=== PATIENT | male | born 1990 | race Caucasian/White ===

== ENCOUNTER 2019-05-08 04:04 | Inpatient (IN) | payer BC, OTHER, SELFPAY ==
[2019-05-08 05:11] VITALS: BMI 43.0
[2019-05-08] MEDS ORDERED: Sodium Chloride 0.9% 1,000 ML IV SCH (05:45)
[2019-05-08] MEDS ORDERED: Morphine 2 MG/ML SYRINGE SLOW IVP PRN (05:52)
--- NOTE | 2019-05-08 05:55 | PDOC.FPRHP ---
- History of Present Illness Chief Complaint: abd pain History of Present Illness: 29 y/o M with pmhx DM II and HTN presents via direct admit from [facility] for acute pancreatitis. Pt states he started having abd pain yesterday at 5 AM that was gradually worsened. 7/10 intensity, radiates to back. Ate a cheeseburger for breakfast yesterday morning and started experiencing pain after that. C/o N/V and chronic diarrhea. Denies heart burn or reflux. Denies CP, SOB, cough, fever/chills. ED course: CT abd pelvis: peripancreatic fluid, fat stranding. given morphine, 1 L NS, and zofran. Lipase 270, Na 135, Cl 97 glucose 273 ALT 63, AST 14, Alk phos 88 wbc 12.1 - Allergies/Adverse Reactions Allergies Allergy/AdvReac Type Severity Reaction Status Date / Time No Known Allergies Allergy Verified 05/08/19 05:15 - Home Medications Medication Instructions Recorded Confirmed Type Lisinopril 10 mg PO DAILY 05/08/19 History glyBURIDE [Glyburide] 10 mg PO BID 05/08/19 05/08/19 History metFORMIN [Glucophage] 1,000 mg PO BID 05/08/19 05/08/19 History - History PMHx: DM II, HTN, obesity PSHx: none FHx: mother: DM II, Father: DM II Social: Denies etoh, drug or tobacco use - Review of Systems General: reports: weight/appetite/sleep changes (decreased appetite). denies: fever/chills Eyes: denies: eye pain ENT: denies: nasal congestion, rhinorrhea Respiratory: denies: cough, shortness of breath Cardiovascular: denies: chest pain, palpitation, edema Gastrointestinal: reports: nausea, vomiting, diarrhea, abdominal pain. denies: constipation, GI bleeding Genitourinary: denies: incontinence, dysuria Skin: denies: rashes, lesions Musculoskeletal: reports: pain (upper back pain). denies: swelling Neurological: denies: syncope, weakness - Vital signs BP: 174/110 HR: 84 RR: 18 Tmax: 98.6 Pox: 96% on ra Wt: 148 kg - Physical Exam Constitutional: NAD, awake, alert and oriented, well developed HEENT: normocephalic and atraumatic, PERRLA, EOMI, conjunctiva clear, no scleral icterus, grossly normal vision, grossly normal hearing, other (dry MM) Neck: supple, FROM, trachea midline, no JVD Heart: RRR, normal S1/S2, pulses present, no edema Lungs: CTAB, no respiratory distress, good air movement, no rales/rhonchi, no wheezing, no retractions Abdomen: soft, bowel sounds present, other (TTP on light tough epigastric region ) Musculoskeletal: normal structure, normal tone, ROM grossly normal Neurological: no focal deficit, normal sensation Skin: no rash/lesions, good turgor, capillary refill <2 seconds, no jaundice Heme/Lymphatic: no unusual bruising or bleeding, no purpura, no petechia Psychiatric: normal mood and affect, good judgment and insight, intact recent and remote memory FMR H&P: A/P - Problem List (1) Acute pancreatitis Current Visit: Yes Status: Acute Code(s): K85.90 - ACUTE PANCREATITIS WITHOUT NECROSIS OR INFECTION, UNSP Qualifiers: Pancreatitis type: idiopathic (2) DM II (diabetes mellitus, type II), controlled Current Visit: Yes Status: Acute Code(s): E11.9 - TYPE 2 DIABETES MELLITUS WITHOUT COMPLICATIONS (3) HTN (hypertension) Current Visit: Yes Status: Acute Code(s): I10 - ESSENTIAL (PRIMARY) HYPERTENSION (4) Intractable nausea and vomiting Current Visit: Yes Status: Acute Code(s): R11.2 - NAUSEA WITH VOMITING, UNSPECIFIED - Plan 29 y/o male admitted to med inpt for acute pancreatitis 1. Acute pancreatits - idiopathic - ordered abd sonogram to evaluate for cholelithiasis - ordered FLP, LDH - Bisap score 0 - IVF hydration NS @ 150 ml/hr, Morphine for pain control, NPO status 2. Intractable N/V - Zofran antiemetic ordered 3. DM II - SSI - AC/HS accuchecks - will resume home medications once tolerating PO 4. HTN - hydralazine prn - hold lisinopril until tolerating po code status: full code diet: npo dvt ppx: lovenox Dispo: stable, admit to med inpt for pancreatitis treatment and further evaluation FMR H&P: Upper Level - Plan Date/Time: 05/08/19 0551 I, Fuentes Gibbons MD, have evaluated this patient and agree with findings/ plan as outlined by pharmacist intern resident. Pertinent changes/additions are listed here. Acute Pancreatitis - NPO - IVF - Pain Control - Labs ordered for risk stratification - Abd US to rule out gallstone pancreatitis DM2 - Held home meds - Insulin SS - accuchecks All other chronic conditions reviewed and medications to be restarted as appropriate. PCP: Dr. Bruce CODE STATUS: FULL CODE Disposition: Stable, will admit to inpatient medical for further evaluation and management.
[2019-05-08] MEDS ORDERED: Dextrose 5% in Water 1,000 ML IV PRN (06:08)
[2019-05-08] MEDS ORDERED: Dextrose 50% Abboject 50 ML SYRINGE SLOW IVP PRN (06:08)
[2019-05-08] MEDS ORDERED: hydrALAZINE 20 MG/ML VIAL SLOW IVP PRN (06:14)
[2019-05-08] MEDS: Sodium Chloride 0.9% 1,000 ML IV SCH ×4 (06:28→22:35)
[2019-05-08] MEDS: HumaLOG 300 UNITS/3 ML VIAL SC PRN ×3 (06:35→16:07)
[2019-05-08] MEDS: Morphine 2 MG/ML SYRINGE SLOW IVP PRN ×8 (06:42→22:34)
[2019-05-08 06:47] LABS: Cardiac Risk 3.3 (Less than 4.5); Cholesterol 128 mg/dl (< 200 Desired); HDL Cholesterol 39 mg/dL (>60 Neg Risk); LDL Cholesterol, Calculated 67 mg/dL; Magnesium 1.6 mg/dL (1.6-2.6); Phosphorus 3.5 mg/dL (2.3-4.7); Triglycerides 109 mg/dL (Less than 150)
[2019-05-08] MEDS: Ondansetron PF 4 MG/2 ML Vial IVP PRN ×3 (07:02→20:12)
--- NOTE | 2019-05-08 07:58 | ULT ---
ULTRASOUND ABDOMEN LIMITED: (RIGHT UPPER QUADRANT) DATE: 05/08/2019 HISTORY: 29-year-old male with acute pancreatitis FINDINGS: There is very limited visualization of intra-abdominal contents due to body habitus. Most of the live r and deep portions of the gallbladder are poorly visualized. Gallbladder: Normal wall thickness. No evidence of pericholecystic fluid, or gallstones. Liver: Diffusely increased echogenicity, consistent with fatty liver in the small region of left lobe that is visible. Most of the liver is not visible because of body habitus. Common duct not visualized. Right kidney: No hydronephrosis. Pancreas: Obscured by shadowing from bowel gas. IMPRESSION: 1) Hepatic steatosis. 2) no gallstones identified 3) pancreas not visualized. 4) Limited study with poor visualization of much of the abdominal contents due to body habitus.
[2019-05-08] MEDS: Enoxaparin Sodium 40 MG/0.4 ML SYRINGE SC SCH (08:11)
[2019-05-08] MEDS: Famotidine/PF 20 mg/2ml Vial SLOW IVP SCH ×2 (08:11→20:13)
--- NOTE | 2019-05-08 11:49 | HP ---
I have examined the patient and discussed the case with Dr. Gwendolyn Arreguin and agree with her assessment plan. Briefly, Mr. Light is a 29-year-old type 2 diabetic, who had presented to the [facility] with abdominal pain. He was found there to have acute pancreatitis and was transferred to our center for ongoing higher level of care. PHYSICAL EXAMINATION: VITAL SIGNS: His blood pressure is 160/100, heart rate is 80, and respirations 16. He is afebrile. His room air pulse ox is 96%. GENERAL: He is awake and alert. Still in a great deal of discomfort, but able to converse. EARS, NOSE, AND THROAT: No erythema or exudate. NECK: Supple. CARDIAC: Heart rhythm is regular without gallop or murmur. LUNGS: Clear without rales or wheezes. ABDOMEN: Obese. Positive bowel sounds. Slightly tender in the left upper quadrant. He is not particularly tender in the epigastric area. NEUROLOGICAL: No focal deficits. LABORATORY DATA: His lipase from the outlying lab was 250. His triglycerides 109, cholesterol 128, and LDL is 67. ASSESSMENT: Possible pancreatitis. PLAN: Admit fluids. Pain control. Right upper quadrant ultrasound. Job ID: [id number]
[2019-05-08] MEDS ORDERED: Lisinopril 10 MG TAB PO SCH (12:15)
[2019-05-09] MEDS: Morphine 2 MG/ML SYRINGE SLOW IVP PRN ×3 (00:56→05:55)
[2019-05-09] MEDS: Sodium Chloride 0.9% 1,000 ML IV SCH ×5 (00:57→16:14)
--- NOTE | 2019-05-09 05:32 | PDOC.FM ---
- Subjective Subjective: Pt is concerned about pain mgmt. He waits 45 min when he asks for the morphine every 2 hours. The morphine makes him nauseous and has vomited 500 mL. Has taken zofran round the clock. He took some orange juice and that did not make him nauseous or vomit. He took morphine after tho and that made him vomit. - Objective MAR Reviewed: Yes Vital Signs & Weight: Vital Signs (12 hours) Temp Pulse Resp BP Pulse Ox 05/09/19 04:00 98.7 F 81 18 154/96 H 97 05/09/19 00:32 98.1 F 85 18 156/94 H 96 05/08/19 20:00 98.3 F 94 18 147/94 H 98 Weight Weight 148 kg I&O: 05/07/19 05/08/19 05/09/19 06:59 06:59 06:59 Intake Total 2850 Output Total 500 Balance 2350 Result Diagrams: 05/09/19 05:24 05/09/19 05:24 Phys Exam - Physical Examination Constitutional: NAD Respiratory: no wheezing Gastrointestinal: soft (mild tenderness b/l to midline, no bruits, no distension , +BS), positive bowel sounds Musculoskeletal: no edema Psychiatric: normal affect Dx/Plan (1) Acute pancreatitis Code(s): K85.90 - ACUTE PANCREATITIS WITHOUT NECROSIS OR INFECTION, UNSP Status: Acute Qualifiers: Pancreatitis type: idiopathic (2) DM II (diabetes mellitus, type II), controlled Code(s): E11.9 - TYPE 2 DIABETES MELLITUS WITHOUT COMPLICATIONS Status: Acute (3) HTN (hypertension) Code(s): I10 - ESSENTIAL (PRIMARY) HYPERTENSION Status: Acute (4) Intractable nausea and vomiting Code(s): R11.2 - NAUSEA WITH VOMITING, UNSPECIFIED Status: Acute - Plan Plan: 29 y/o male admitted to [facility] for acute pancreatitis 1. Acute pancreatits 1a. Hepatic Steatosis - idiopathic - abd sono negative for gallstone. showed hepatic steatosis - FLP wnl. - Bisap score 0 - slow fluids to 150mL/hr and encourage oral intake. - D/C morphine since side effect of nausea is confusing the picture of pancreatitis. 2. Intractable N/V - Zofran prn 3. DM II - SSI moderate - A1c pending - AC/HS accuchecks - will resume home medications once tolerating PO 4. HTN - hydralazine prn - give lisinopril, home med code status: full code diet: cld, low fat dvt ppx: lovenox Dispo: stable, admit to med inpt for pancreatitis treatment and further evaluation
[2019-05-09 05:47] LABS: #Eosinphils 0.1 thou/uL (0.0-0.7); #Lymphocytes 1.6 thou/uL (1.20-3.40); #Monocytes 1.2 thou/uL (0.11-0.59); #Neutrophils 10.8 thou/uL (1.40-6.50); %Basophils 0.1 % (0.0-1.0); %Eosinophils 0.6 % (0.0-10.0); %Lymphocytes 11.4 % (21.0-51.0); %Monocytes 8.8 % (0.0-10.0); Hemoglobin 14.3 g/dL (14.0-18.0); Mean Corpuscular HGB CONC 33.9 g/dL (32.0-36.0); Mean Corpuscular Hemoglobin 28.1 pg (27.0-31.0); Mean Corpuscular Volume 82.8 fL (78.0-98.0); Mean Platelet Volume 7.1 fL (7.4-10.4); Platelet Count 257 thou/uL (130-400); RBC Distribution Width 13.6 % (11.5-14.5); White Blood Cell (WBC) Count 13.7 thou/uL (4.8-10.8)
[2019-05-09 06:13] LABS: ALT (SGPT) 38 U/L (8-55); AST (SGOT) 12 U/L (5-34); Albumin 3.8 g/dL (3.5-5.0); Alkaline Phosphatase 79 U/L (40-110); Anion Gap 16 mmol/L (10-20); BUN (Urea Nitrogen) 5 mg/dL (8.9-20.6); Bilirubin, Total 1.3 mg/dL (0.2-1.2); Calc. Creatinine Clearance 334 mL/min (70-130); Calcium 8.8 mg/dL (7.8-10.44); Carbon Dioxide 19 mmol/L (22-29); Chloride 102 mmol/L (98-107); Estimated GFR-MDRD Greater than 90; Glucose 189 mg/dL (70-105); Potassium 4.1 mmol/L (3.5-5.1); Protein, Total 6.8 g/dL (6.0-8.3); Sodium 133 mmol/L (136-145)
[2019-05-09 08:44] LABS: Hemoglobin A1c 10.6 % (4.0-6.0)
[2019-05-09] MEDS: Enoxaparin Sodium 40 MG/0.4 ML SYRINGE SC SCH (09:06)
[2019-05-09] MEDS: Lisinopril 10 MG TAB PO SCH (09:07)
[2019-05-09] MEDS: Famotidine/PF 20 mg/2ml Vial SLOW IVP SCH ×2 (09:07→20:15)
[2019-05-09] MEDS: HYDROcodone/Acetaminophen 5/325 mg Tablet PO PRN ×3 (10:08→18:09)
[2019-05-09] MEDS: HumaLOG 300 UNITS/3 ML VIAL SC PRN ×2 (13:03→18:10)
[2019-05-10] MEDS: Ondansetron PF 4 MG/2 ML Vial IVP PRN ×2 (00:35→08:27)
[2019-05-10] MEDS: HYDROcodone/Acetaminophen 5/325 mg Tablet PO PRN ×2 (00:35→05:28)
[2019-05-10 05:23] LABS: #Eosinphils 0.1 thou/uL (0.0-0.7); #Lymphocytes 1.7 thou/uL (1.20-3.40); #Monocytes 0.7 thou/uL (0.11-0.59); %Basophils 0.4 % (0.0-1.0); %Eosinophils 1.5 % (0.0-10.0); %Lymphocytes 19.8 % (21.0-51.0); %Monocytes 8.2 % (0.0-10.0); %Neutrophils 70.1 % (42.0-75.0); Hemoglobin 13.7 g/dL (14.0-18.0); Mean Corpuscular HGB CONC 31.6 g/dL (32.0-36.0); Mean Corpuscular Hemoglobin 26.2 pg (27.0-31.0); Mean Corpuscular Volume 82.8 fL (78.0-98.0); Mean Platelet Volume 7.2 fL (7.4-10.4); Platelet Count 270 thou/uL (130-400); RBC Distribution Width 13.6 % (11.5-14.5); Red Blood Cell (RBC) Count 5.21 mill/uL (4.70-6.10); White Blood Cell (WBC) Count 8.5 thou/uL (4.8-10.8)
[2019-05-10] MEDS: Sodium Chloride 0.9% 1,000 ML IV SCH (05:28)
--- NOTE | 2019-05-10 06:07 | PDOC.FM ---
- Subjective Subjective: Patient says he is feeling better today. Says he was "not needing" the pain medicine. Per MAR he took [place] 5/325 1 tab five times over the past 24 hours. He vomited once in the AM when he first started CLD. Otherwise, he tolerated CLD well the rest of the day. Informed him of A1c of 10.6 and need to go home on insulin. - Objective MAR Reviewed: Yes Vital Signs & Weight: Vital Signs (12 hours) Temp Pulse Resp BP Pulse Ox 05/10/19 05:00 98.0 F 86 16 152/88 H 98 05/09/19 23:10 98.8 F 80 16 148/89 H 97 05/09/19 20:21 99.1 F 88 16 152/94 H 95 Weight Weight 148 kg I&O: 05/08/19 05/09/19 05/10/19 06:59 06:59 06:59 Intake Total 5250 4870 Output Total 500 Balance 4750 4870 Result Diagrams: 05/10/19 05:07 05/10/19 06:50 Phys Exam - Physical Examination Constitutional: NAD nonlabored breathing well perfused Gastrointestinal: soft, non-tender, no distention, positive bowel sounds Musculoskeletal: no edema Psychiatric: normal affect, A&O x 3 Dx/Plan (1) Acute pancreatitis Code(s): K85.90 - ACUTE PANCREATITIS WITHOUT NECROSIS OR INFECTION, UNSP Status: Acute Qualifiers: Pancreatitis type: idiopathic (2) DM II (diabetes mellitus, type II), controlled Code(s): E11.9 - TYPE 2 DIABETES MELLITUS WITHOUT COMPLICATIONS Status: Acute (3) HTN (hypertension) Code(s): I10 - ESSENTIAL (PRIMARY) HYPERTENSION Status: Acute (4) Intractable nausea and vomiting Code(s): R11.2 - NAUSEA WITH VOMITING, UNSPECIFIED Status: Acute - Plan Plan: 29 y/o male admitted to [facility] in for acute pancreatitis 1. Acute pancreatits 1a. Hepatic Steatosis - idiopathic vs hyperglycemia. - abd sono negative for gallstone. showed hepatic steatosis - slow fluids to 75 mL/hr and encourage oral intake. - liver enzymes elevated today. Will discuss w/ team about advancing diet. - space out pain medicines q8h. 2. Intractable N/V - Zofran prn 3. DM II - SSI moderate - A1c 10.6. - AC/HS accuchecks - will Rx long acting and meal time insulin on d/c 4. HTN - hydralazine prn - give lisinopril, home med code status: full code diet: cld, low fat dvt ppx: lovenox Dispo: stable, admit to med inpt for pancreatitis treatment and further evaluation.
[2019-05-10] MEDS ORDERED: HYDROcodone/Acetaminophen 5/325 mg Tablet PO PRN (06:09)
[2019-05-10] MEDS ORDERED: Sodium Chloride 0.9% 1,000 ML IV SCH (06:11)
[2019-05-10 07:19] LABS: Albumin 3.5 g/dL (3.5-5.0)
[2019-05-10 07:20] LABS: Chloride 101 mmol/L (98-107); Potassium 3.7 mmol/L (3.5-5.1)
[2019-05-10 07:21] LABS: Calcium 8.7 mg/dL (7.8-10.44); Sodium 134 mmol/L (136-145)
[2019-05-10 07:22] LABS: Globulin 2.9 g/dL (2.4-3.5); Glucose 178 mg/dL (70-105); Protein, Total 6.4 g/dL (6.0-8.3)
[2019-05-10 07:23] LABS: Anion Gap 12 mmol/L (10-20); Carbon Dioxide 25 mmol/L (22-29)
[2019-05-10 07:24] LABS: Bilirubin, Total 3.4 mg/dL (0.2-1.2)
[2019-05-10 07:25] LABS: Alkaline Phosphatase 81 U/L (40-110); Calc. Creatinine Clearance 373 mL/min (70-130); Estimated GFR-MDRD Greater than 90
[2019-05-10 07:26] LABS: BUN (Urea Nitrogen) 7 mg/dL (8.9-20.6)
[2019-05-10 07:27] LABS: AST (SGOT) 67 U/L (5-34)
[2019-05-10 07:28] LABS: ALT (SGPT) 119 U/L (8-55)
--- NOTE | 2019-05-10 07:33 | PRG ---
DATE OF SERVICE: 05/09/2019 ADDENDUM: This is an addendum to the note of Dr. Amy Ashton. Mr. Light had some vomiting earlier this morning, likely from the morphine, which he states is making him nauseated. His abdominal pain is better, but he is still not hungry and does not feel completely well. We will continue IV fluids. We will switch him to p.o. [place] for pain. We will attempt very gradually to increase his diet. This morning, his white count is 13,700. His hemoglobin was 14.3 with hematocrit of 42.2. Electrolytes; sodium 133, potassium 4.1, chloride 102, bicarb 19, BUN 5, and creatinine 0.67. Glucoses are ranging from 270 to 186, and we need better control there, but given that he is not eating consistently, this makes the process difficult. His A1c is measured at 10.6. Job ID: [id number]
[2019-05-10] MEDS: Famotidine/PF 20 mg/2ml Vial SLOW IVP SCH ×2 (08:27→19:53)
[2019-05-10] MEDS: Lisinopril 10 MG TAB PO SCH ×2 (10:30→22:16)
[2019-05-10] MEDS: Enoxaparin Sodium 40 MG/0.4 ML SYRINGE SC SCH (10:58)
--- NOTE | 2019-05-10 12:47 | PRG ---
DATE OF SERVICE: 05/10/2019 Mr. Light still is not feeling well, although his abdominal pain has improved. However, this morning his lab did reveal elevation of his bilirubin to 3.4. We will proceed with an MRCP and possibly a HIDA scan depending on the results. Job ID: [id number]
[2019-05-10] MEDS: Lactated Ringer's 1,000 ML IV SCH ×2 (14:33→20:00)
[2019-05-10] MEDS: HumaLOG 300 UNITS/3 ML VIAL SC PRN (20:47)
[2019-05-10] MEDS ORDERED: Insulin Glargine 5 UNITS in Pre-Filled Syringe 1 EACH SC SCH (21:00)
[2019-05-11] MEDS: Ondansetron PF 4 MG/2 ML Vial IVP PRN (02:04)
[2019-05-11 05:20] LABS: #Eosinphils 0.1 thou/uL (0.0-0.7); #Lymphocytes 1.4 thou/uL (1.20-3.40); #Monocytes 0.5 thou/uL (0.11-0.59); %Basophils 0.2 % (0.0-1.0); %Eosinophils 2.4 % (0.0-10.0); %Lymphocytes 22.6 % (21.0-51.0); %Monocytes 8.1 % (0.0-10.0); %Neutrophils 66.8 % (42.0-75.0); Hemoglobin 13.8 g/dL (14.0-18.0); Mean Corpuscular HGB CONC 33.8 g/dL (32.0-36.0); Mean Corpuscular Volume 82.9 fL (78.0-98.0); Mean Platelet Volume 7.3 fL (7.4-10.4); Platelet Count 238 thou/uL (130-400); RBC Distribution Width 13.3 % (11.5-14.5); Red Blood Cell (RBC) Count 4.91 mill/uL (4.70-6.10); White Blood Cell (WBC) Count 6.1 thou/uL (4.8-10.8)
[2019-05-11] MEDS: HumaLOG 300 UNITS/3 ML VIAL SC PRN ×2 (05:32→22:09)
[2019-05-11] MEDS: Lactated Ringer's 1,000 ML IV SCH ×4 (05:33→20:03)
[2019-05-11 05:41] LABS: ALT (SGPT) 271 U/L (8-55); AST (SGOT) 160 U/L (5-34); Albumin 3.5 g/dL (3.5-5.0); Alkaline Phosphatase 108 U/L (40-110); Anion Gap 13 mmol/L (10-20); BUN (Urea Nitrogen) 8 mg/dL (8.9-20.6); Calc. Creatinine Clearance 320 mL/min (70-130); Calcium 9.1 mg/dL (7.8-10.44); Carbon Dioxide 26 mmol/L (22-29); Chloride 100 mmol/L (98-107); Estimated GFR-MDRD Greater than 90; Globulin 2.8 g/dL (2.4-3.5); Glucose 232 mg/dL (70-105); Potassium 3.8 mmol/L (3.5-5.1); Protein, Total 6.3 g/dL (6.0-8.3); Sodium 135 mmol/L (136-145)
--- NOTE | 2019-05-11 06:03 | PDOC.FM ---
- Subjective Subjective: Pt vomited after drinking ensure last night. His pain is currently 2/10 in severity. He did not eat anything else besides ensure yesterday. Understands plan for today. - Objective MAR Reviewed: Yes Vital Signs & Weight: Vital Signs (12 hours) Temp Pulse Resp BP BP BP Pulse Ox 05/11/19 04:17 98.6 F 72 16 160/91 H 97 05/11/19 00:03 98.2 F 84 14 156/99 H 99 05/10/19 22:16 145/92 H 05/10/19 21:20 145/92 H 05/10/19 21:00 98.5 F 85 16 157/104 H 96 05/10/19 20:00 96 Weight Weight 148 kg I&O: 05/09/19 05/10/19 05/11/19 06:59 06:59 06:59 Intake Total 5250 4870 3700 Output Total 500 200 Balance 4750 4870 3500 Result Diagrams: 05/11/19 04:52 05/11/19 04:52 Phys Exam - Physical Examination Constitutional: NAD Respiratory: no wheezing Cardiovascular: RRR Gastrointestinal: soft, non-tender, no distention, positive bowel sounds ( hypoactive) Dx/Plan (1) Acute pancreatitis Code(s): K85.90 - ACUTE PANCREATITIS WITHOUT NECROSIS OR INFECTION, UNSP Status: Acute Qualifiers: Pancreatitis type: idiopathic (2) DM II (diabetes mellitus, type II), controlled Code(s): E11.9 - TYPE 2 DIABETES MELLITUS WITHOUT COMPLICATIONS Status: Acute (3) HTN (hypertension) Code(s): I10 - ESSENTIAL (PRIMARY) HYPERTENSION Status: Acute (4) Intractable nausea and vomiting Code(s): R11.2 - NAUSEA WITH VOMITING, UNSPECIFIED Status: Acute - Plan Plan: 29 y/o male admitted to [facility] for acute pancreatitis 1. Acute pancreatits, transaminitis 1a. Hepatic Steatosis - idiopathic vs hyperglycemia. - abd sono negative for gallstone. showed hepatic steatosis - rising transaminases and TBili. Direct bilirubin pending. - Pt exceeds weight limit for MRI, so will pursue HIDA scan today to assess patency of ducts. - may consider GI consult if LFTs keep rising. 2. Intractable N/V - Zofran prn 3. DM II - SSI moderate - A1c 10.6. - AC/HS accuchecks - Lantus nightly. 4. HTN - hydralazine prn - give lisinopril, home med code status: full code diet: npo for HIDA. May resume cld after scan pending HIDA results. dvt ppx: lovenox Dispo: stable, admit to med inpt for pancreatitis treatment and further evaluation.
[2019-05-11] MEDS: Enoxaparin Sodium 40 MG/0.4 ML SYRINGE SC SCH (09:07)
[2019-05-11] MEDS: Famotidine/PF 20 mg/2ml Vial SLOW IVP SCH ×2 (09:07→20:03)
--- NOTE | 2019-05-11 12:01 | PRG ---
DATE OF SERVICE: 05/11/2019 Mr. Light's bilirubin has now increased to 4. He has just returned from HIDA scan, and we are awaiting results. He could not fit on the MRI bed, so we were unable to get an MRCP. If his HIDA scan is positive, we will consult Surgery. If it is negative, we may consult GI to consider an ERCP. Job ID: [id number]
[2019-05-11 17:19] LABS: Prothrombin Time 13.2 SEC (12.0-14.7)
[2019-05-11] MEDS ORDERED: Insulin Glargine 10 UNITS in Pre-Filled Syringe 1 EACH SC SCH (21:00)
--- NOTE | 2019-05-12 05:53 | PDOC.FM ---
- Subjective Subjective: Pt has no pain this AM. Has not required pain meds in past 24 hours. He did not eat at all yesterday. Denies nausea. - Objective MAR Reviewed: Yes Vital Signs & Weight: Vital Signs (12 hours) Temp Pulse Resp BP BP Pulse Ox 05/12/19 00:00 77 151/96 H 05/11/19 20:00 97.8 F 77 16 161/98 H 96 Weight Weight 148 kg I&O: 05/10/19 05/11/19 05/12/19 06:59 06:59 06:59 Intake Total 4870 3700 Output Total 200 Balance 4870 3500 Result Diagrams: 05/12/19 05:46 05/12/19 05:46 Phys Exam - Physical Examination Constitutional: NAD nonlabored breathing Gastrointestinal: soft, non-tender, no distention, positive bowel sounds ( normoactive) Dx/Plan (1) Acute pancreatitis Code(s): K85.90 - ACUTE PANCREATITIS WITHOUT NECROSIS OR INFECTION, UNSP Status: Acute Qualifiers: Pancreatitis type: idiopathic (2) DM II (diabetes mellitus, type II), controlled Code(s): E11.9 - TYPE 2 DIABETES MELLITUS WITHOUT COMPLICATIONS Status: Acute (3) HTN (hypertension) Code(s): I10 - ESSENTIAL (PRIMARY) HYPERTENSION Status: Acute (4) Intractable nausea and vomiting Code(s): R11.2 - NAUSEA WITH VOMITING, UNSPECIFIED Status: Acute - Plan Plan: 29 y/o male admitted to [facility] in for acute pancreatitis 1. Acute pancreatits, transaminitis 1a. Hepatic Steatosis vs other hepatocellular disease - idiopathic vs hyperglycemia. - abd sono negative for gallstone. showed hepatic steatosis. - Prelim report on HIDA scan did not show evidence of obstruction in duct system. One more delayed scan to be performed this AM. NPO until that scan. Then resume CLD. - rising transaminases and TBili. Elevated direct bilirubin. - ordered hepatitis panel, HIV, RPR this AM. - Pt exceeds weight limit for MRI, so MRCP not possibility here. - may consider GI consult 2. Intractable N/V - Zofran prn 3. DM II - SSI moderate - A1c 10.6. - AC/HS accuchecks - Lantus nightly. Titrate accordingly. 4. HTN - hydralazine prn - give lisinopril, home med. Increased dosage since BP >150/90 regularly. code status: full code diet: npo for HIDA. May resume cld after scan pending HIDA results. dvt ppx: lovenox Dispo: stable, admit to med inpt for pancreatitis treatment and further evaluation. Addendum - Attending - Attending Attestation Date/Time: 05/12/19 6505 I personally evaluated the patient and discussed the management with Dr. Ashton. I agree with the History, Examination, Assessment and Plan documented above with any addition or exceptions noted below. Patient feeling well, denies pain. Ambulated well yesterday. Awaiting HIDA scan result, then can advance diet and see if his pancreatitis is resolved. Awaiting LFT results to evaluate trends. Likely GI consult for possible ERCP.
[2019-05-12 06:08] LABS: #Eosinphils 0.1 thou/uL (0.0-0.7); #Lymphocytes 1.4 thou/uL (1.20-3.40); #Monocytes 0.4 thou/uL (0.11-0.59); %Basophils 0.5 % (0.0-1.0); %Eosinophils 2.9 % (0.0-10.0); %Lymphocytes 28.6 % (21.0-51.0); %Monocytes 7.7 % (0.0-10.0); %Neutrophils 60.2 % (42.0-75.0); Hemoglobin 13.8 g/dL (14.0-18.0); Mean Corpuscular HGB CONC 33.7 g/dL (32.0-36.0); Mean Corpuscular Volume 83.1 fL (78.0-98.0); Mean Platelet Volume 7.2 fL (7.4-10.4); Platelet Count 248 thou/uL (130-400); RBC Distribution Width 13.2 % (11.5-14.5); Red Blood Cell (RBC) Count 4.93 mill/uL (4.70-6.10)
[2019-05-12] MEDS: HumaLOG 300 UNITS/3 ML VIAL SC PRN ×3 (06:28→20:43)
[2019-05-12 06:31] LABS: ALT (SGPT) 513 U/L (8-55); AST (SGOT) 232 U/L (5-34); Albumin 3.5 g/dL (3.5-5.0); Alkaline Phosphatase 151 U/L (40-110); Anion Gap 12 mmol/L (10-20); BUN (Urea Nitrogen) 7 mg/dL (8.9-20.6); Bilirubin, Total 4.5 mg/dL (0.2-1.2); Calc. Creatinine Clearance 339 mL/min (70-130); Calcium 8.9 mg/dL (7.8-10.44); Carbon Dioxide 27 mmol/L (22-29); Chloride 99 mmol/L (98-107); Estimated GFR-MDRD Greater than 90; Globulin 2.8 g/dL (2.4-3.5); Glucose 169 mg/dL (70-105); Potassium 3.4 mmol/L (3.5-5.1); Protein, Total 6.3 g/dL (6.0-8.3); Sodium 135 mmol/L (136-145)
[2019-05-12] MEDS: Lactated Ringer's 1,000 ML IV SCH ×3 (06:32→18:26)
[2019-05-12 08:59] LABS: Syphilis Antibody Nonreactive (Nonreactive); Syphilis Antibody Index 0.05 S/CO (<1.00 Non-Reactive)
[2019-05-12 09:03] LABS: HBCM Index 0.11 S/CO (0-0.79); HBSAB Concentration 2.07 mIU/mL; HBSAg Index 0.29 S/CO (0-0.99); HIV (1/2) Antibody/Antigen Non-Reactive (NonReactive); HIV 1/2 INDEX 0.18 S/CO (<1.00); Hep A IgM AB Non-Reactive (NonReactive); Hep A IgM S/CO 0.59 S/CO (0-0.79); Hep B Surf AB Non-Reactive (NonReactive); Hep B Surf Ag Non-Reactive S/CO (NonReactive); Hep C IgG Ab Non-Reactive (NonReactive); Hep C Index 0.05 S/CO (0-0.79); Hepatitis B Core IgM Abs Non-Reactive (NonReactive)
--- NOTE | 2019-05-12 09:55 | NM ---
HEPATOBILIARY SCAN: HISTORY:Pancreatitis RADIOPHARMACEUTICAL: 5.3 mCi Technetium 99m Mebrofenin injected intravenously FINDINGS: There is slow tracer extraction by the liver with delayed visualization of the gallbladder at 4 hours . No bowel activity seen on the 6 hour image. The 24-hour image demonstrates persistent activity in the liver and gallbladder without significant activity in the bowel. IMPRESSION:Findings are consistent with severe hepatocellular dysfunction.
[2019-05-12] MEDS: Famotidine/PF 20 mg/2ml Vial SLOW IVP SCH ×2 (10:12→20:42)
[2019-05-12] MEDS: Enoxaparin Sodium 40 MG/0.4 ML SYRINGE SC SCH (10:12)
[2019-05-12] MEDS: Lisinopril 20 MG TAB PO SCH (10:12)
[2019-05-12] MEDS: metFORMIN 500 MG TAB PO SCH (20:42)
[2019-05-12] MEDS ORDERED: Insulin Glargine 15 UNITS in Pre-Filled Syringe 1 EACH SC SCH (21:00)
--- NOTE | 2019-05-13 01:46 | CON ---
DATE OF CONSULTATION: 05/12/2019 REASON FOR CONSULTATION: Abnormal LFTs. HISTORY OF PRESENT ILLNESS: Mr. Thaddeus Light is a very obese 29-year-old male, hospitalized 3 days ago with abdominal pain. Apparently, he went to the ER in [place] and was found to have evidence of pancreatitis. Interestingly, his serum lipase was really not that high. The patient had abdominal sonogram, which reveals no gallstones. The patient also had a noncontrast abdominal CAT scan, which was unremarkable. However, this is of limited value because of the noncontrast study. The patient's abdominal pain resolved. He is drinking well, he is tolerating diet well. The patient had a HIDA scan today, which was more suggestive of hepatobiliary disease. the patient is tolerating diet. Has no abdominal pain, no nausea, no vomiting. He was found to have abnormal LFTs. The liver function test on admission was slightly elevated. His bilirubin level was 3.4, AST 67, ALT 119. On 05/11/2019, bilirubin climbed to 4, AST 160, ALT 271, alkaline phosphatase 108. Today, the bilirubin has gone to 4.5, AST 232, ALT 513, alkaline phosphatase 151. He had hepatitis markers all came back negative. The patient has no prior history of liver disease. There is no family history of liver disease. The patient has no history of alcohol abuse or drug abuse. He had no other relevant history. MEDICAL ILLNESSES: 1. Type 2 diabetes mellitus. 2. Hypertension. 3. Obesity. ALLERGIES: NONE. SOCIAL HISTORY: The patient does not smoke. No history of alcohol abuse. No history of drug abuse. FAMILY HISTORY: Father had his gallbladder removed. Both parents had diabetes mellitus. PAST SURGICAL HISTORY: None. MEDICATIONS: List reviewed which include: 1. Lisinopril 20 mg once a day. 2. Glyburide 10 mg p.o. twice a day. 3. Metformin 1000 mg p.o. twice a day. REVIEW OF SYSTEMS: CONSTITUTIONAL: No history of weight loss. No fever or chills. He has good exercise tolerance. HEENT: No chronic headache, dizziness. No diplopia. No impaired vision. No hearing loss. No nose bleed. No sore throat. NECK: No stiffness or any limitation of movement. LUNGS: No chronic coughing. No hemoptysis. No dyspnea. CARDIOVASCULAR: No chest pain. No palpitation. No dyspnea, orthopnea, or PND. GI: Abdominal pain and nausea, which resolved. He has mildly elevated lipase. GENITOURINARY: No dysuria or hematuria. MUSCULOSKELETAL: Not relevant. NEUROLOGICAL: Not relevant. NEUROPSYCHIATRY: Not relevant. PHYSICAL EXAMINATION: GENERAL: He is very obese, appears comfortable, in no acute distress. VITAL SIGNS: He is afebrile. His pulse is 66, blood pressure 143/90. NECK: Supple. No adenitis or thyromegaly noted. CARDIOVASCULAR SYSTEM: First and second heart sounds normal. LUNGS: Clear to auscultation. ABDOMEN: Soft. Abdomen is pendulous. Abdomen is nontender. No organomegaly. No masses. EXTREMITIES: Reveal no edema. LABORATORY DATA: WBC is 5000, hemoglobin 13.8, hematocrit 41, MCV 83.1, platelet count is 248,000, polymorphs 60, lymphocytes 28. Serum chemistry, chem-7 normal, potassium 3.4, glucose is 169, calcium 8.9, bilirubin 4.5, AST 232, ALT 513, alkaline phosphatase 151, albumin 3.5. Abdominal sonogram shows no gallstones. HIDA scan is most suggestive of hepatobiliary disease. CLINICAL IMPRESSION: 1. A 29-year-old male with acute pancreatitis, which has resolved. 2. Abnormal LFTs most suggestive of hepatobiliary disease and non-cholestatic. I do not feel he has any surgical abdomen. 3. Obesity. 4. Diabetes mellitus. 5. Hypertension. RECOMMENDATIONS: 1. Follow up LFTs. 2. No need for MRCP or ERCP. I will probably follow up as outpatient and function test. Job ID: [id number]
[2019-05-13 05:33] LABS: #Eosinphils 0.2 thou/uL (0.0-0.7); #Lymphocytes 1.8 thou/uL (1.20-3.40); #Monocytes 0.4 thou/uL (0.11-0.59); #Neutrophils 3.4 thou/uL (1.40-6.50); %Basophils 0.8 % (0.0-1.0); %Eosinophils 3.1 % (0.0-10.0); %Lymphocytes 30.7 % (21.0-51.0); %Monocytes 7.6 % (0.0-10.0); %Neutrophils 57.7 % (42.0-75.0); Hemoglobin 14.1 g/dL (14.0-18.0); Mean Corpuscular HGB CONC 33.9 g/dL (32.0-36.0); Mean Corpuscular Hemoglobin 28.3 pg (27.0-31.0); Mean Corpuscular Volume 83.4 fL (78.0-98.0); Mean Platelet Volume 7.5 fL (7.4-10.4); Platelet Count 250 thou/uL (130-400); RBC Distribution Width 13.2 % (11.5-14.5); Red Blood Cell (RBC) Count 4.98 mill/uL (4.70-6.10); White Blood Cell (WBC) Count 5.8 thou/uL (4.8-10.8)
--- NOTE | 2019-05-13 05:37 | PDOC.FM ---
- Subjective Subjective: Patient is alert and in a good mood this morning. He has no pain. Tolerated clear liquids after HIDA scan without nausea/vomiting. Says IV fluids have made him feel "sluggish." No questions or concerns this morning. - Objective MAR Reviewed: Yes Vital Signs & Weight: Vital Signs (12 hours) Temp Pulse Resp BP Pulse Ox 05/12/19 20:00 96 05/12/19 19:00 98.1 F 77 16 141/94 H 96 Weight Weight 148 kg I&O: 05/11/19 05/12/19 05/13/19 06:59 06:59 07:59 Intake Total 3700 1400 Output Total 200 Balance 3500 1400 Result Diagrams: 05/13/19 05:09 05/13/19 05:09 Phys Exam - Physical Examination Constitutional: NAD Respiratory: clear to auscultation bilateral Cardiovascular: RRR Gastrointestinal: soft, non-tender, no distention, positive bowel sounds Psychiatric: normal affect, A&O x 3 Dx/Plan (1) Acute pancreatitis Code(s): K85.90 - ACUTE PANCREATITIS WITHOUT NECROSIS OR INFECTION, UNSP Status: Acute Qualifiers: Pancreatitis type: idiopathic (2) DM II (diabetes mellitus, type II), controlled Code(s): E11.9 - TYPE 2 DIABETES MELLITUS WITHOUT COMPLICATIONS Status: Acute (3) HTN (hypertension) Code(s): I10 - ESSENTIAL (PRIMARY) HYPERTENSION Status: Acute (4) Intractable nausea and vomiting Code(s): R11.2 - NAUSEA WITH VOMITING, UNSPECIFIED Status: Acute - Plan Plan: 29 y/o male admitted to [facility] for acute pancreatitis 1. Acute pancreatits, 1a. Transaminitis 1b. Hepatic Steatosis vs other hepatocellular disease - idiopathic vs hyperglycemia. - HIDA scan showing severe hepatocellular dysfunction w/o blockage. - GI consulted for elevated LFTs. Will see as outpatient. - LFTs still elevated but relatively stable from yesterday. 2. Intractable N/V - Zofran prn 3. DM II - SSI moderate - A1c 10.6. - AC/HS accuchecks - Lantus nightly. Titrate accordingly. - continue metformin. 4. HTN - hydralazine prn - lisinopril 20 mg. BP still running high so will consider additional home med. code status: full code diet: FLD. ADAT. dvt ppx: lovenox Dispo: stable. As long as patient tolerates advancing diet today, will plan on d /c this afternoon. Addendum - Attending - Attending Attestation Date/Time: 05/13/19 [id number] I personally evaluated the patient and discussed the management with Dr. Ashton. I agree with the History, Examination, Assessment and Plan documented above with any addition or exceptions noted below.
[2019-05-13 05:52] LABS: ALT (SGPT) 544 U/L (8-55); AST (SGOT) 166 U/L (5-34); Albumin 3.5 g/dL (3.5-5.0); Alkaline Phosphatase 163 U/L (40-110); Anion Gap 12 mmol/L (10-20); BUN (Urea Nitrogen) 5 mg/dL (8.9-20.6); Bilirubin, Total 3.7 mg/dL (0.2-1.2); Calc. Creatinine Clearance 334 mL/min (70-130); Carbon Dioxide 28 mmol/L (22-29); Chloride 102 mmol/L (98-107); Estimated GFR-MDRD Greater than 90; Globulin 2.9 g/dL (2.4-3.5); Glucose 177 mg/dL (70-105); Potassium 3.8 mmol/L (3.5-5.1); Protein, Total 6.4 g/dL (6.0-8.3); Sodium 138 mmol/L (136-145)
[2019-05-13] MEDS: Lactated Ringer's 1,000 ML IV SCH (06:04)
[2019-05-13] MEDS: HumaLOG 300 UNITS/3 ML VIAL SC PRN (06:05)
[2019-05-13 07:45] VITALS: BP 126/83; TEMP 98.4
[2019-05-13] MEDS: Famotidine/PF 20 mg/2ml Vial SLOW IVP SCH (08:34)
[2019-05-13] MEDS: Lisinopril 20 MG TAB PO SCH (08:34)
[2019-05-13] MEDS: metFORMIN 500 MG TAB PO SCH (08:34)
[2019-05-13] MEDS: Enoxaparin Sodium 40 MG/0.4 ML SYRINGE SC SCH (08:35)
[2019-05-14 13:31] LABS: ANA Symphony (Qualitative) Negative (Negative); ANA Symphony (Quantitative) 0.2 Ratio (< 0.7 Negative); EliA Vaculitis New Method **** NEW METHOD ****; Mitochondrial Ab Less than 0.5 U/mL (<4 Negative); dsDNA IgG Antibody Less than 0.5 IU/mL (<10 Negative)
[2019-05-15 13:38] LABS: Smooth Muscle Total ABS 7 Units (0-19)
[2019-05-15 15:38] LABS: Cytoplasmic (C-ANCA) <1:20 titer (Neg:<1:20); Myeloperoxidase AutoAbs <9.0 U/mL (0.0-9.0); Perinuclear (P-ANCA) <1:20 titer (Neg:<1:20); Proteinase-3 AutoAbs 5.1 U/mL (0.0-3.5)
== END 2019-05-13 10:55 | disposition home or self-care (01) | DRG 439 ==
LOC: SURG B 05:08
PROVIDERS: ADMIT Emergency Medicine; ATTEND Emergency Medicine
DX: K85.00 Idiopathic acute pancreatitis without necrosis or infection (principal); Z68.41 Body mass index [BMI] 40.0-44.9, adult; I10 Essential (primary) hypertension; E66.9 Obesity, unspecified; Z83.3 Family history of diabetes mellitus; K76.0 Fatty (change of) liver, not elsewhere classified; K83.9 Disease of biliary tract, unspecified; R11.2 Nausea with vomiting, unspecified; T40.2X5A Adverse effect of other opioids, initial encounter; E11.65 Type 2 diabetes mellitus with hyperglycemia
CPT/HCPCS: 36415; 36416; 76705; 78227; 80053; 80061; 82248; 83036; 83516; 83520; 83615; 83735; 84100; 85025; 85610; 86038; 86225; 86256; 86705; 86706; 86709; 86780; 86803; 87340; 87389; A9537; J0360; J1650; J1815; J2270; J2405; S0028